=== PATIENT | female | born 1980 | race Hispanic/Latino ===

== ENCOUNTER 2017-11-17 13:41 | Emergency (ER) | payer MEDICAID, OTHER ==
[2017-11-17 14:58] LABS: BASOPHILS % (AUTO) 0.7 % (0.0-5.0); EOSINOPHILS % (AUTO) 1.2 % (0.0-8.0); HEMATOCRIT 40.9 % (36-48); MEAN CORPUSCULAR HEMOGLOBIN 29.3 pg (27.0-33.0); MEAN CORPUSCULAR HGB CONC 34.5 g/dL (32.0-36.0); MONOCYTES % (AUTO) 8.5 % (3.0-13.0); NEUTROPHILS % (AUTO) 68.6 % (40.0-77.0); PLATELET COUNT (AUTO) 207 K/uL (130-400); RED BLOOD CELL COUNT(AUTO) 4.81 MIL/uL (4.00-5.50); RED CELL DISTRIBUTION WIDTH 13.5 % (11.0-15.5); WHITE BLOOD COUNT (AUTO) 8.3 K/uL (4.8-10.8)
[2017-11-17 15:08] LABS: CREATININE 0.7 mg/dL (0.5-1.5); POTASSIUM 3.6 mmol/L (3.5-5.1)
[2017-11-17 15:11] LABS: ALBUMIN 3.6 g/dL (3.5-5.0); BILIRUBIN,TOTAL 0.3 mg/dL (0.2-1.0); TOTAL PROTEIN, SERUM 7.2 g/dL (6.0-8.3)
[2017-11-17 15:14] LABS: APPEARANCE,URINE Clear (CLEAR); BILIRUBIN,URINE Negative (NEGATIVE); COLOR,URINE Dark Yellow (YELLOW); GLUCOSE, URINE (UA) Negative (NEGATIVE); HCG,QUAL RESULT POSITIVE (NEGATIVE); KETONES,URINE Trace mg/dL (NEGATIVE); LEUKOCYTE ESTERASE ,URINE Negative (NEGATIVE); NITRATE,URINE Negative (NEGATIVE); OCCULT BLOOD,URINE Trace (NEGATIVE); PH,URINE 5.5 (5.0-8.0); PROTEIN,URINE Negative (NEGATIVE)
[2017-11-17] MEDS ORDERED: SODIUM CHLORIDE 0.9% 1000ML 1,000 ML IV ONE (15:17)
[2017-11-17] MEDS ORDERED: ONDANSETRON HCL 4 MG/2 ML VIAL ONE (15:17)
[2017-11-17 15:26] LABS: BACTERIA,URINE Rare /HPF (None Seen); MUCUS,URINE Rare LPF (None Seen); RBC,URINE 0-1 /HPF (0-1); SQUAMOUS EPITHELIAL CELL,UR 0-2 /LPF (0-2); WBC,URINE None Seen /HPF (0-1)
[2017-11-17] MEDS ORDERED: ACETAMINOPHEN EXTRA STRENGTH 500 MG TABLET ONE (16:13)
== END 2017-11-17 17:29 | disposition home or self-care (01) ==
LOC: EDH 13:41
DX: O26.891 Other specified pregnancy related conditions, first trimester (principal); M54.6 Pain in thoracic spine; O21.9 Vomiting of pregnancy, unspecified; R35.0 Frequency of micturition; Z88.2 Allergy status to sulfonamides; Z90.49 Acquired absence of other specified parts of digestive tract; Z3A.01 Less than 8 weeks gestation of pregnancy
CPT/HCPCS: 36415; 76801; 80053; 81001; 81025; 82150; 83690; 84702; 85025; 96361; 96374; 99285; J2405; J7030

== ENCOUNTER 2018-06-24 11:06 | Observation (INO) | payer MEDICAID | END 2018-06-24 16:00 | disposition home or self-care (01) | LOC: LDH 11:06 | PROVIDERS: ADMIT Specialist; ATTEND Specialist | DX: O62.9 Abnormality of forces of labor, unspecified (principal); O09.523 Supervision of elderly multigravida, third trimester; Z3A.37 37 weeks gestation of pregnancy | CPT/HCPCS: G0378 ×5 ==

== ENCOUNTER 2024-03-20 10:18 | Inpatient (IN) | payer BC, MEDICAID ==
[~2024-03-20] VITALS: Ht 162.6 cm; Wt 88.4 kg
[~2024-03-20 10:18] MED LIST: PREN-196 PO
[2024-03-20 10:57] LABS: BASOPHILS # (AUTO) 0.06 K/uL (0.00-0.20); BASOPHILS % (AUTO) 0.6 % (0.0-5.0); IMMATURE GRANULOCYTE ABSOLUTE 0.05 K/uL (0-1); LYMPHOCYTES # (AUTO) 2.3 K/uL (1.0-4.8); LYMPHOCYTES % (AUTO) 22.7 % (21.0-51.0); MEAN CORPUSCULAR HEMOGLOBIN 28.1 pg (27.0-33.0); MEAN CORPUSCULAR HGB CONC 34.4 g/dL (32.0-36.0); MEAN CORPUSCULAR VOLUME 81.8 fL (79-99); MONOCYTES # (AUTO) 0.7 K/uL (0.1-1.0); MONOCYTES % (AUTO) 6.7 % (3.0-13.0); NEUTROPHILS % (AUTO) 68.5 % (40.0-77.0); PLATELET COUNT (AUTO) 231 K/uL (130-400); RED BLOOD CELL COUNT(AUTO) 4.77 MIL/uL (4.00-5.50); RED CELL DISTRIBUTION WIDTH 13.1 % (11.0-15.5); WHITE BLOOD COUNT (AUTO) 10.2 K/uL (4.8-10.8)
[2024-03-20] MEDS: 0.9%NACL 1000ML 1,000 ML IV ONE (11:04)
[2024-03-20] MEDS: ONDANSETRON 4MG INJ IVP ONE (11:04)
[2024-03-20] MEDS: MORPHINE 2 MG SYG IVP ONE (11:05)
[2024-03-20 11:11] LABS: CREATININE 1.1 mg/dL (0.5-1.0); POTASSIUM 4.1 mmol/L (3.5-5.1)
[2024-03-20 11:17] LABS: ALBUMIN 3.6 g/dL (3.5-5.0); BILIRUBIN,TOTAL 0.8 mg/dL (0.2-1.0); TOTAL PROTEIN, SERUM 7.6 g/dL (6.0-8.3)
[2024-03-20 12:16] LABS: APPEARANCE,URINE CLOUDY (CLEAR); BILIRUBIN,URINE NEGATIVE (NEGATIVE); COLOR,URINE YELLOW (YELLOW); GLUCOSE, URINE (UA) NEGATIVE (NEGATIVE); KETONES,URINE NEGATIVE (NEGATIVE); LEUKOCYTE ESTERASE ,URINE 500 Leu/uL (NEGATIVE); NITRATE,URINE NEGATIVE (NEGATIVE); OCCULT BLOOD,URINE LARGE (NEGATIVE); PROTEIN,URINE 70 mg/dL (NEGATIVE); UROBILINOGEN,URINE 0.2 mg/dL (0.2-1.0)
[2024-03-20 12:24] LABS: ADD UA MICROSCOPIC YES
[2024-03-20 12:54] LABS: BACTERIA,URINE FEW /HPF (None Seen); MUCUS,URINE FEW LPF (None Seen); RBC,URINE 26-50 /HPF (0-1); SQUAMOUS EPITHELIAL CELL,UR MANY /HPF (0-2); WBC,URINE 26-50 /HPF (0-1)
[2024-03-20] MEDS ORDERED: IOHEXOL 350 MG/ML 100ML INFUS..BTL IV ONE (12:55)
[2024-03-20] MEDS: CEFTRIAXONE 1G VIAL IV ONE (13:19)
[2024-03-20] MEDS: 0.9%NACL 1000ML 1,000 ML IV SCH (14:55)
[2024-03-20] MEDS: KETOROLAC 15MG/ML VIAL (15MG/ML) IV PRN (15:08)
[2024-03-20] MEDS: FAMOTIDINE 20MG VIAL IV SCH (15:09)
[2024-03-20 15:13] LABS: INR 0.98 (0.85-1.15); PARTIAL THROMBOPLASTIN TIME 28.4 SEC (26.3-35.5); PROTHROMBIN TIME 10.4 SEC (9.6-11.6)
[2024-03-20] MEDS: ACETAMINOPHEN 325 MG TAB PO PRN (16:58)
[2024-03-20 17:45] VITALS: BP 113/78; PULSE 78; RESP 18
[2024-03-20 17:48] VITALS: O2SAT 99
[2024-03-20 18:07] VITALS: BP 114/68; PULSE 78; RESP 18
[2024-03-20] MEDS: CEFTRIAXONE 1G VIAL IVPB SCH (19:55)
[2024-03-20 20:00] VITALS: BP 107/67; PULSE 75; RESP 18; O2SAT 99
[2024-03-20] MEDS: MORPHINE 2 MG SYG IVP PRN (22:20)
[2024-03-20] MEDS: ONDANSETRON 4MG INJ IVP PRN (22:22)
[2024-03-21] VITALS: BP 102/63; PULSE 79; RESP 18
[2024-03-21 04:00] VITALS: BP 111/68; PULSE 77; RESP 18
[2024-03-21 05:35] LABS: BASOPHILS # (AUTO) 0.04 K/uL (0.00-0.20); BASOPHILS % (AUTO) 0.5 % (0.0-5.0); EOSINOPHILS # (AUTO) 0.13 K/uL (0.00-0.70); EOSINOPHILS % (AUTO) 1.6 % (0.0-8.0); HEMATOCRIT 34.4 % (36-48); IMMATURE GRANULOCYTE ABSOLUTE 0.04 K/uL (0-1); LYMPHOCYTES # (AUTO) 1.2 K/uL (1.0-4.8); LYMPHOCYTES % (AUTO) 14.9 % (21.0-51.0); MEAN CORPUSCULAR HGB CONC 34.3 g/dL (32.0-36.0); MEAN CORPUSCULAR VOLUME 84.5 fL (79-99); MONOCYTES # (AUTO) 0.7 K/uL (0.1-1.0); MONOCYTES % (AUTO) 8.4 % (3.0-13.0); NEUTROPHILS # (AUTO) 5.9 K/uL (1.8-7.7); NEUTROPHILS % (AUTO) 74.1 % (40.0-77.0); PLATELET COUNT (AUTO) 183 K/uL (130-400); RED BLOOD CELL COUNT(AUTO) 4.07 MIL/uL (4.00-5.50); WHITE BLOOD COUNT (AUTO) 7.9 K/uL (4.8-10.8)
[2024-03-21 06:18] LABS: ALBUMIN 2.8 g/dL (3.5-5.0); BILIRUBIN,TOTAL 0.5 mg/dL (0.2-1.0); MAGNESIUM 1.7 mg/dL (1.80-2.40); TOTAL PROTEIN, SERUM 6.5 g/dL (6.0-8.3)
[2024-03-21 08:00] VITALS: BP 117/73; PULSE 91; RESP 16; O2SAT 98
[2024-03-21 12:00] VITALS: BP 112/72; PULSE 67; RESP 16
[2024-03-21 16:00] VITALS: BP 115/75; PULSE 89; RESP 14
[2024-03-21] MEDS: DEXTROSE 5 % AND 0.9 % NACL 1,000 ML IV SCH (19:52)
[2024-03-21] MEDS: ENOXAPARIN SODIUM 40 MG/0.4 ML SYRINGE SQ SCH (19:53)
[2024-03-21 20:00] VITALS: BP 118/70; PULSE 80; RESP 18; O2SAT 99
[2024-03-22] VITALS (8 sets, daily range): BP systolic 100–119; BP diastolic 61–82; PULSE 67–80; RESP 16–20; O2SAT 99–100
[2024-03-22 05:17] LABS: BASOPHILS # (AUTO) 0.03 K/uL (0.00-0.20); BASOPHILS % (AUTO) 0.5 % (0.0-5.0); EOSINOPHILS # (AUTO) 0.11 K/uL (0.00-0.70); EOSINOPHILS % (AUTO) 1.8 % (0.0-8.0); HEMATOCRIT 35.7 % (36-48); IMMATURE GRANULOCYTE ABSOLUTE 0.02 K/uL (0-1); LYMPHOCYTES # (AUTO) 1.5 K/uL (1.0-4.8); LYMPHOCYTES % (AUTO) 24.9 % (21.0-51.0); MEAN CORPUSCULAR HEMOGLOBIN 28.1 pg (27.0-33.0); MEAN CORPUSCULAR HGB CONC 33.6 g/dL (32.0-36.0); MEAN CORPUSCULAR VOLUME 83.6 fL (79-99); MONOCYTES # (AUTO) 0.5 K/uL (0.1-1.0); MONOCYTES % (AUTO) 8.8 % (3.0-13.0); NEUTROPHILS # (AUTO) 3.9 K/uL (1.8-7.7); NEUTROPHILS % (AUTO) 63.7 % (40.0-77.0); PLATELET COUNT (AUTO) 212 K/uL (130-400); RED BLOOD CELL COUNT(AUTO) 4.27 MIL/uL (4.00-5.50); WHITE BLOOD COUNT (AUTO) 6.1 K/uL (4.8-10.8)
[2024-03-22 05:33] LABS: BILIRUBIN,TOTAL 0.4 mg/dL (0.2-1.0); CREATININE 0.9 mg/dL (0.5-1.0); MAGNESIUM 1.8 mg/dL (1.80-2.40); POTASSIUM 3.6 mmol/L (3.5-5.1)
[2024-03-22] MEDS ORDERED: GADOTERATE MEGLUMINE 10 MMOL/20 ML VIAL IV ONE (17:14)
[2024-03-23] VITALS (8 sets, daily range): BP systolic 109–129; BP diastolic 72–87; PULSE 71–81; RESP 16–18; O2SAT 99
[2024-03-23 04:44] LABS: ALBUMIN 2.8 g/dL (3.5-5.0); BILIRUBIN,TOTAL 0.3 mg/dL (0.2-1.0); CREATININE 0.9 mg/dL (0.5-1.0); MAGNESIUM 1.7 mg/dL (1.80-2.40); POTASSIUM 3.8 mmol/L (3.5-5.1); TOTAL PROTEIN, SERUM 6.6 g/dL (6.0-8.3)
[2024-03-24] VITALS (18 sets, daily range): BP systolic 105–128; BP diastolic 60–88; PULSE 55–79; RESP 16–20; O2SAT 98
[2024-03-24 04:52] LABS: ALBUMIN 2.8 g/dL (3.5-5.0); BILIRUBIN,TOTAL 0.3 mg/dL (0.2-1.0); MAGNESIUM 1.6 mg/dL (1.80-2.40); POTASSIUM 3.6 mmol/L (3.5-5.1); TOTAL PROTEIN, SERUM 6.6 g/dL (6.0-8.3)
[2024-03-24] MEDS ORDERED: PROPOFOL 10 MG/ML 20ML VIAL IV ONE ×2 (13:12→13:16)
[2024-03-24] MEDS ORDERED: LIDOCAINE PF 100MG/5ML (2%) SYRINGE 5ML ONE (13:13)
[2024-03-24] MEDS: MAGNESIUM 2GM PREMIX 50ML 50 ML IV ONE (15:00)
== END 2024-03-24 16:00 | disposition short-term general hospital (02) | DRG 439 ==
LOC: EDH 10:18 → EDHIP 14:43 → 4DH 17:36
PROVIDERS: ADMIT Internal Medicine; ATTEND Internal Medicine
PROC: 0DJ08ZZ Inspection of Upper Intestinal Tract, Via Natural or Artificial Opening Endoscopic (ICD-10-PCS; principal; 2024-03-24)
DX: K86.2 Cyst of pancreas (principal); N30.01 Acute cystitis with hematuria; E86.0 Dehydration; E66.9 Obesity, unspecified; N83.209 Unspecified ovarian cyst, unspecified side; R93.5 Abnormal findings on diagnostic imaging of other abdominal regions, including retroperitoneum; R93.3 Abnormal findings on diagnostic imaging of other parts of digestive tract; K31.89 Other diseases of stomach and duodenum; Z90.49 Acquired absence of other specified parts of digestive tract; Z80.0 Family history of malignant neoplasm of digestive organs; Z88.2 Allergy status to sulfonamides
CPT/HCPCS: 36415; 43237; 71045; 74177; 74183; 76700; 76856; 80053; 81001; 82378; 83690; 83735; 84145; 84702; 85025; 85610; 85730; 86140; 86304; 86316; 87086; 96375; 96376; G0378; J0696; J1650; J1885; J2001; J2270; J2405; J2704; J3475; J3490; J7030; Q9967; A4215; A4222; A4223; A4620; A9575